=== PATIENT | female | born 1970 | race Caucasian/White ===

== ENCOUNTER 2016-09-06 13:02 | Day surgery (SDC) | payer BC ==
[2016-09-04 17:44] LABS: BASOPHILS 0.3 %; BASOPHILS ABSOLUTE 0.02 10/3/uL (0.0-0.16); EOSINOPHILS 2.8 %; EOSINOPHILS ABSOLUTE 0.18 10/3/uL (0.0-0.53); LYMPHOCYTES 47.9 %; LYMPHOCYTES ABSOLUTE 3.12 10/3/uL (0.67-4.30); MEAN CORPUS HGB CONC 31.4 g/dL (32.0-36.0); MEAN CORPUSCULAR HEMOGLOB 26.3 pg (26.0-34.0); MEAN CORPUSCULAR VOLUME 83.5 fL (80-100); MEAN PLATELET VOLUME 10.6 fL (9.2-13.0); MONOCYTES 5.2 %; MONOCYTES ABSOLUTE 0.34 10/3/uL (0.21-1.20); NEUTROPHILS 43.8 %; NEUTROPHILS ABSOLUTE 2.85 10/3/uL (2.02-8.40); PLATELET COUNT 289 10/3/uL (150-400); RBC DISTRIBUTION WIDTH 14.6 % (12.0-16.0); RED CELL COUNT 4.19 10/6/uL (4.0-5.6); WHITE BLOOD CELLS 6.5 10/3/uL (4.5-10.5)
[2016-09-04 17:45] LABS: MANUAL DIFF NO %
[2016-09-04 18:06] LABS: BUN (BLOOD UREA NITROGEN) 11 MG/DL (6-23); CALCIUM, SERUM 8.5 MG/DL (8.5-10.4); CHLORIDE, SERUM 104 MMOL/L (96-112); CO2 (CARBON DIOXIDE) 23 MMOL/L (24-34); GFR AFRICAN AMERICAN 119 ML/MIN (>=60); GFR NON AFRICAN AMERICAN 102 ML/MIN (>=60); GLUCOSE, SERUM 89 MG/DL (60-99); POTASSIUM, SERUM 3.8 MMOL/L (3.5-5.3); SODIUM, SERUM 140 MMOL/L (135-148)
[2016-09-04 18:09] LABS: ASCORBIC ACID (UR NOT ORDER) NEG (NEG); BILIRUBIN, URINE NEGATIVE (NEG); KETONE, URINE NEGATIVE (NEG); LEUKOCYTE ESTERASE(NOT OR SMALL (NEG); WBC (NOT ORDERED) (RFLEX) 13 (0-5)
--- NOTE | ~2016-09-06 | OP ---
Record Of Operation [facility] [address] [place]. [address] NAME: MARBELLA GARCIA : 66 STATUS : [facility]#: [id number] AGE: 46 ADM/REG DATE : 09/06/16 MR#: [id number] REPORT SERV DATE: 09/07/16 DICTATED BY: Alcon DESIR DATE: 09/06/16 REPORT STATUS : Draft TRANSCRIBED BY: MODL DATE: 09/06/16 DATE OF PROCEDURE: 09/06/2016 PREOPERATIVE DIAGNOSIS: Right renal pelvic stone with urinary tract infection. POSTOPERATIVE DIAGNOSIS: Right renal pelvic stone with urinary tract infection. PROCEDURE: Cystoscopy, right retrograde pyelography, stone manipulation, double-J stent placement. SURGEON: Alcon Desir M.D. ANESTHESIA: General. COMPLICATIONS: None. DRAINS: A 7-Spanish x 26 cm Contour double-J stent. BRIEF HISTORY: Ms Garcia is a 46-year-old white female seen by me recently with gross hematuria and bilateral flank pain. She had urine culture two weeks prior to her office visit which showed a quinolone resistant E. coli, and she was on sensitivity-directed antibiotics. She was not toxic in appearance, and a noncontrast CT showed a 1.5 cm right renal pelvic stone without hydronephrosis. She has also been on Eliquis for atrial fibrillation. It was decided to place a stent prior to planned ESWL. The risks of bleeding, infection, anesthesia, injury to adjacent organs, stent misery, etc. were discussed. There were no unanswered questions. She stopper her Eliquis a day preoperatively. DESCRIPTION OF PROCEDURE: Under excellent general anesthesia, the patient was prepped and draped in standard lithotomy position. Cystoscopy was performed with a 30-degree lens, revealed some bladder debris but no tumor, stones, or foreign bodies. A KUB had shown a faint right renal pelvic stone 1.5 to 1.9 cm in size. I actually used an 8-Spanish cone- tipped catheter to perform a right retrograde pyelogram which showed a normal caliber ureter without filling defect or obstruction and good drainage. I inserted an angled glidewire through a 5-Spanish open-ended catheter up the ureter and into the collecting system. I then placed a 7-Spanish x 26 cm Contour double-J stent which coiled reasonably well in the renal pelvis and bladder and terminated the procedure. The stone appeared to have been manipulated into the renal pelvis. The patient tolerated the procedure well and will be discharged to outpatient with the following instructions. DISCHARGE INSTRUCTIONS: 1. Home today. 2. Continue to stay off Eliquis. 3. Percocet 5/325 one to two p.o. q.4 hours p.r.n. pain, #25. 4. Uribel one p.o. q.6 h. p.r.n. bladder pain #20 with three refills. 5. Amoxicillin 500 mg one p.o. t.i.d. x7 days. Record Of Operation [address] [place]. [address] NAME: MARBELLA GARCIA : 66 STATUS : [facility] PAT#: [id number] AGE: 46 ADM/REG DATE : 09/06/16 MR#: [id number] REPORT SERV DATE: 09/07/16 DICTATED BY: Alcon DESIR DATE: 09/06/16 REPORT STATUS : Draft TRANSCRIBED BY: KATHLEEN DATE: 09/06/16 6. Keep followup for ESWL on 09/09/2016. MAUDE/KATHLEEN Alcon Desir M.D. / [id number] CC: Eugenia Coon
[~2016-09-06 13:02] MED LIST: AMB10 PO; ASAB PO; CAT1 PO; COZ50 PO; ELIQUIS 2.5 MG2.5 MG PO; IMITREX50 PO; K500 PO; KLONO2 PO; LOP50 PO; NORCO1 TA1 PO; PACERONE100 MG PO; WELL100 PO; ZOL50 PO
== END 2016-09-07 19:57 | disposition home or self-care (01) ==
LOC: SDC 13:02
PROC: 0TJ98ZZ Inspection of Ureter, Via Natural or Artificial Opening Endoscopic (ICD-10-PCS; principal; 2016-09-06 16:15)
DX: N20.0 Calculus of kidney (principal); I48.91 Unspecified atrial fibrillation; Z79.01 Long term (current) use of anticoagulants; I10 Essential (primary) hypertension; J44.9 Chronic obstructive pulmonary disease, unspecified; Z98.84 Bariatric surgery status; Z88.5 Allergy status to narcotic agent; G43.909 Migraine, unspecified, not intractable, without status migrainosus; Z87.891 Personal history of nicotine dependence; Z90.89 Acquired absence of other organs; Z87.01 Personal history of pneumonia (recurrent); F41.9 Anxiety disorder, unspecified; F32.9 Major depressive disorder, single episode, unspecified; Z90.49 Acquired absence of other specified parts of digestive tract; Z98.890 Other specified postprocedural states; R79.89 Other specified abnormal findings of blood chemistry; Z87.442 Personal history of urinary calculi; Z79.899 Other long term (current) drug therapy
CPT/HCPCS: 74000; 74176; 74420; 80048; 80053; 81001; 83690; 84703; 85025; 85610; 85730; 87086; 93005; 96374; 99284; A9270-GY; C1758; C1769; C2617; J1170; J1885; J2250; J2405; J3010; Q9967

== ENCOUNTER 2016-09-09 07:44 | Day surgery (SDC) | payer BC ==
--- NOTE | ~2016-09-09 | OP ---
Record Of Operation [facility] [address] [place]. [address] NAME: MARBELLA GARCIA : 66 STATUS : [facility]#: [id number] AGE: 46 ADM/REG DATE : 09/09/16 MR#: [id number] REPORT SERV DATE: 09/09/16 DICTATED BY: Alcon DESIR DATE: 09/09/16 REPORT STATUS : Draft TRANSCRIBED BY: MODL DATE: 09/09/16 DATE OF PROCEDURE: 09/09/2016 PREOPERATIVE DIAGNOSIS: Right renal pelvic stone. POSTOPERATIVE DIAGNOSIS: Right renal pelvic stone. PROCEDURE: Right renal extracorporeal shock wave lithotripsy. SURGEON: Alcon Desir M.D. ANESTHESIA: MAC. COMPLICATIONS: None. DRAINS: None. BRIEF HISTORY: Ms. Garcia is a 46-year-old white female seen by me last week with a history of symptomatic 1.4 cm right renal pelvic stone. She has also had a positive urine culture, so we placed a stent on 09/06/2016, continued with sensitivity-directed antibiotics and planned for ESWL today. The risks of bleeding, infection, anesthesia, injury to adjacent organs, need for retreatment, or endoscopy were all discussed. There were no unanswered questions. She has been off her Eliquis for three days. DESCRIPTION OF PROCEDURE: Under excellent MAC anesthesia, the patient was placed supine on the StorCytoViva lithotripsy unit #2. The aforementioned stone was localized at F2, and a total of 3000 shocks at power level up to 7.0 were delivered to the stone. The stone appeared to fragment at about a 1000 shocks. There were still some large fragments scattered through the kidney, so we tried to zan them around to assure better fragmentation Ms. Garcia tolerated the procedure well and will be discharged to outpatient with the following instructions. DISCHARGE INSTRUCTIONS: 1. Home today. Plan is to continue pain medicine, antibiotics, and bladder analgesics. 2. Percocet 5/325 one to two p.o. q.4 hours p.r.n. pain, #20. 3. Okay to start Eliquis in 48 hours if doing well. 4. Follow up in my office in one to two weeks with a KUB with plans for cysto and stent removal as appropriate versus stent removal in the OR. MAUDE/KATHLEEN Alcon Desir M.D. Record Of Operation [address] [address] NAME: MARBELLA GARCIA LYNDSEY : 66 STATUS : [facility] PAT#: [id number] AGE: 46 ADM/REG DATE : 09/09/16 MR#: [id number] REPORT SERV DATE: 09/09/16 DICTATED BY: Alcon DESIR DATE: 09/09/16 REPORT STATUS : Draft TRANSCRIBED BY: KATHLEEN DATE: 09/09/16 / [id number] CC: Eugenia Coon WILLIAM ANDREW
== END 2016-09-09 13:37 | disposition home or self-care (01) ==
LOC: SDC 07:44
PROC: 0TF3XZZ Fragmentation in Right Kidney Pelvis, External Approach (ICD-10-PCS; principal; 2016-09-09 10:00)
DX: N20.0 Calculus of kidney (principal); J44.9 Chronic obstructive pulmonary disease, unspecified; I48.91 Unspecified atrial fibrillation; Z87.891 Personal history of nicotine dependence; E66.01 Morbid (severe) obesity due to excess calories; Z68.41 Body mass index [BMI] 40.0-44.9, adult; Z79.01 Long term (current) use of anticoagulants; Z79.899 Other long term (current) drug therapy; Z88.5 Allergy status to narcotic agent; I10 Essential (primary) hypertension
CPT/HCPCS: 50590; 74000; 84703; A9270-GY; J2250; J2405; J3010

== ENCOUNTER 2016-09-24 12:38 | Day surgery (SDC) | payer BC ==
--- NOTE | ~2016-09-24 | OP ---
Record Of Operation [facility] [address] [place]. [address] NAME: MARBELLA GARCIA : 66 STATUS : [facility] [place] PAT#: [id number] AGE: 46 ADM/REG DATE : 09/24/16 MR#: [id number] REPORT SERV DATE: 09/24/16 DICTATED BY: Alcon DESIR DATE: 09/24/16 REPORT STATUS : Draft TRANSCRIBED BY: MODL DATE: 09/24/16 DATE OF PROCEDURE: 09/24/2016 PREOPERATIVE DIAGNOSIS: Right flank pain status post stent removal. POSTOPERATIVE DIAGNOSIS: Right ureteral [address]. PROCEDURE: Cystoscopy, right retrograde pyelography, ureteroscopy with stone extraction (multiple), double-J stent placement. SURGEON: Alcon Desir M.D. ANESTHESIA: General. COMPLICATIONS: None. DRAINS: A 7-Cymraes x 26 cm Contour double-J stent. BRIEF HISTORY: Ms. Garcia is a 46-year-old white female with a history of stone disease, who underwent stent placement and ESWL of a 1.4 cm renal pelvic stone on 09/09/2016. She had a preoperative UTI. I saw her yesterday in the office with a KUB and could not see any appreciable fragments plus she had passed a lot of small fragments. My feeling was that the stone had been dusted and she was going to pass the rest, but unfortunately today she passed some fragments and then became increasingly symptomatic and apparently had some large fragments that she could not pass. A KUB was inconclusive and I suspect we could see her large stone pretty well. She has overall fairly radiolucent stone. At any rate, she is here for ureteroscopic intervention. We discussed the risks of bleeding, infection, anesthesia, need for recurrent stent placement, etc. There were no unanswered questions. DESCRIPTION OF PROCEDURE: Under excellent general anesthesia, the patient was prepped and draped in a standard lithotomy position. Cystoscopy was performed with the 30-degree lens and revealed some stone fragments in the bladder. There was also an obvious stone emanating from the right ureteral orifice. I inserted an angled glidewire through a 5-Cymraes open- ended catheter up to the level of the collecting system and then a short rigid ureteroscope was inserted along side the wire. I encountered probably 18 to 24 fragments in the ureter and all were extractable with the Nitinol basket and I slowly extracted them in piecemeal fashion. At the end of the procedure, I could see no further fragments but her ureter was understandably traumatizing, so I decided to place a stent. I dilutely opacified the collecting system, retrofitted the wire into the cystoscope, placed a 7-Cymraes x 26 cm Contour double-J stent. It coiled nicely in the renal pelvis and bladder. I plan to discharge Ms. Garcia as an outpatient with the following instructions. DISCHARGE INSTRUCTIONS: 1. Home today. 2. Hydrocodone 5/325 one to two p.o. q.4 hours p.r.n. pain, #25. 3. Follow up in my office next week for cysto stent removal about next Friday or Record Of Operation [address] [place]. [address] NAME: MARBELLA GARCIA : 66 STATUS : [facility] [place] PAT#: [id number] AGE: 46 ADM/REG DATE : 09/24/16 MR#: [id number] REPORT SERV DATE: 09/24/16 DICTATED BY: Alcon DESIR DATE: 09/24/16 REPORT STATUS : Draft TRANSCRIBED BY: MODL DATE: 09/24/16Friday. MAUDE/KATHLEEN Alcon Desir M.D. / [id number] CC: Eugenia Coon William Andrew
[2016-09-24 15:18] LABS: BASOPHILS 0.2 %; BASOPHILS ABSOLUTE 0.02 10/3/uL (0.0-0.16); EOSINOPHILS 0.9 %; EOSINOPHILS ABSOLUTE 0.09 10/3/uL (0.0-0.53); HEMATOCRIT 35.9 % (36.0-48.0); HEMOGLOBIN 11.6 g/dL (12.0-16.0); IMMATURE GRANULOCYTES 0.4 %; IMMATURE GRANULOCYTES ABSOLUTE 0.04 10/3/uL (0.0-0.11); LYMPHOCYTES 22.3 %; LYMPHOCYTES ABSOLUTE 2.32 10/3/uL (0.67-4.30); MANUAL DIFF NO %; MEAN CORPUS HGB CONC 32.3 g/dL (32.0-36.0); MEAN CORPUSCULAR HEMOGLOB 26.9 pg (26.0-34.0); MEAN CORPUSCULAR VOLUME 83.1 fL (80-100); MEAN PLATELET VOLUME 10.6 fL (9.2-13.0); MONOCYTES ABSOLUTE 0.83 10/3/uL (0.21-1.20); NEUTROPHILS 68.2 %; PLATELET COUNT 277 10/3/uL (150-400); RED CELL COUNT 4.32 10/6/uL (4.0-5.6); WHITE BLOOD CELLS 10.4 10/3/uL (4.5-10.5)
[2016-09-24 15:32] LABS: BUN (BLOOD UREA NITROGEN) 14 MG/DL (6-23); CALCIUM, SERUM 8.5 MG/DL (8.5-10.4); CHLORIDE, SERUM 104 MMOL/L (96-112); CO2 (CARBON DIOXIDE) 26 MMOL/L (24-34); CREATININE 1.12 MG/DL (0.55-1.02); GFR AFRICAN AMERICAN 67 ML/MIN (>=60); GFR NON AFRICAN AMERICAN 58 ML/MIN (>=60); POTASSIUM, SERUM 4.2 MMOL/L (3.5-5.3); SODIUM, SERUM 138 MMOL/L (135-148)
[2016-09-24 15:34] LABS: GLUCOSE, SERUM 86 MG/DL (60-99)
[2016-09-24 15:55] LABS: PLATELET ESTIMATE ADQ (ADEQUATE); RBC MORPHOLOGY NORM (NORMAL)
[2016-09-28 21:56] LABS: STONE COMPOSITION TWO DNR (())
== END 2016-09-24 18:34 | disposition home or self-care (01) ==
LOC: SDC 12:38
PROC: 0TF68ZZ Fragmentation in Right Ureter, Via Natural or Artificial Opening Endoscopic (ICD-10-PCS; 2016-09-24)
PROC: 0T768DZ Dilation of Right Ureter with Intraluminal Device, Via Natural or Artificial Opening Endoscopic (ICD-10-PCS; 2016-09-24)
PROC: 0TC68ZZ Extirpation of Matter from Right Ureter, Via Natural or Artificial Opening Endoscopic (ICD-10-PCS; principal; 2016-09-24 15:15)
DX: N20.1 Calculus of ureter (principal); I10 Essential (primary) hypertension; Z79.01 Long term (current) use of anticoagulants; Z79.899 Other long term (current) drug therapy; Z90.49 Acquired absence of other specified parts of digestive tract; Z87.891 Personal history of nicotine dependence; Z98.890 Other specified postprocedural states; I48.91 Unspecified atrial fibrillation
CPT/HCPCS: 74000; 74420; 80048; 82365; 84703; 85025; A9270-GY; C1758; C1769; C2617; J2250; J2270; J2370; J2405; J3010; Q9967